=== PATIENT | female | born 1990 | race Caucasian/White ===

== ENCOUNTER 2024-06-06 10:45 | Outpatient (CLI) | payer BC, SELFPAY ==
[2024-06-06] VITALS (8 sets, daily range): BP systolic 117; BP diastolic 82; PULSE 78–82; RESP 16; TEMP 37; O2SAT 93–97; BMI 31.2
[2024-06-06] MEDS: Lactated Ringers 500 ML 125 ML IV (11:40)
--- NOTE | 2024-06-06 12:27 | PCM.HP.OB ---
HPI - General General Date of Admission: 06/06/24 Date of Service: 06/06/24 Chief Complaint: breech presentation HPI Narrative JOSÉ RODRIGUEZ, is a 33 F who presents for a scheduled ECV. The procedure was discussed in the office with the patient who requested to proceed. No ctx, vb, lof. Good FM. PFSH PFSH Home Medications ?Medication ?Instructions ?Recorded ?Last Taken ?Type acyclovir 400 mg tablet 400 mg PO TID 06/06/24 Unknown History magnesium tab PO 06/06/24 Unknown History multivitamin (Daily Multi-Vitamin 1 tab PO DAILY 06/06/24 Unknown History tablet) Allergy/AdvReac Type Severity Reaction Status Date / Time milk Allergy Mild Other Verified 06/06/24 11:38 NST FHR Rate Baby A FHR Category:: Category I Uterine Activity:: no regular ctx's Vital Signs Vital Signs Vital Signs: 06/06/24 11:30 06/06/24 11:30 06/06/24 11:31 Temperature Temperature Source Pulse Rate 78 82 Respiratory Rate Blood Pressure 117/82 H BP Systolic 117 BP Diastolic 82 Pulse Ox 06/06/24 11:31 06/06/24 11:39 06/06/24 11:39 Temperature Temperature Source Temporal Pulse Rate Respiratory Rate 16 Blood Pressure BP Systolic BP Diastolic Pulse Ox 94 06/06/24 11:39 06/06/24 12:24 06/06/24 12:24 Temperature 98.6 F Temperature Source Pulse Rate 78 Respiratory Rate Blood Pressure BP Systolic BP Diastolic Pulse Ox 93 06/06/24 12:25 06/06/24 12:25 Temperature Temperature Source Pulse Rate 78 Respiratory Rate Blood Pressure BP Systolic BP Diastolic Pulse Ox 94 Weight Weight: 217 lb 13.067 oz Body Mass Index (BMI) 31.2 Labs Labs Labs: No Data to Display Assessment & Plan (1) 37 weeks gestation of : (2) Breech presentation: PLAN: TAUS performed at bedside noting subjectively normal fluid and breech presentation. Discussed r/b/a ECV with patient and partner at bedside, and questions answered. Consent signed. She requested to proceed with external cephalic version.
--- NOTE | 2024-06-06 12:30 | EX.PCM.OBRPT ---
Assessment & Plan (1) Breech presentation: (2) 37 weeks gestation of : Operative Report (OB) Cecarean Details Procedure Type: Other (external cephalic version) Date of Procedure: 06/06/24 Procedure Start Time: 12:15 (estimation) Procedure Stop Time: 12:20 (estimation) Pre-Operative Diagnosis: Breech Post-Operative Diagnosis: Same as Pre-operative diagnosis Type of Anesthesia: None Special Medications: None Drain: Other (None) Estimated Blood Loss: NOne Findings Description of surgery: The patient presented to labor and delivery for a scheduled external cephalic version per patient request. Discussed risk, benefits, alternatives to the procedure and consent signed and on chart. The patient desires to proceed. A bedside ultrasound was performed which confirmed a single intrauterine in breech presentation with adequate fluid. NST was reactive. The pelvis was located in the maternal right lower quadrant, spine along the maternal right side, and head in the maternal left upper quadrant. Sangita Cardenas certified nurse gas controller was at bedside for assistance of the procedure. Using manual traction pressure, the fetus was manipulated with gentle pressure from the palms against the buttocks and posterior occiput to stimulate a forward roll. In total 2 attempts were made. The heart rate was obtained between the attempts, and was reassuring. On the final attempt the fetus remained in breech presentation. The nurse was instructed on heart rate monitoring for 1 hour postprocedure. Discharge instructions were reviewed with patient and reasons to call and return to labor and delivery. Will schedule 39-week section and to follow-up in the office. Surgical findings: Breech presentation Specimen collected: No Commercial Specialist computer game programmer: Yes Truck And Transport Mechanic: sangita cardenas CNM Tasks completed by assistant store manager sales: Other (elevation of buttock, and attempt at rotation of fetus) Complications Complications: No
== END 2024-06-06 14:05 | disposition home or self-care (01) ==
LOC: WPOUT 11:12 → WP 11:12
PROVIDERS: Anesthesiology; Referring Provider Obstetrics & Gynecology; Visit Provider Obstetrics & Gynecology
DX: O32.1XX0 Maternal care for breech presentation, not applicable or unspecified (principal); Z3A.37 37 weeks gestation of pregnancy
CPT/HCPCS: 96360; 96361; 59025; 59050; 59412; 99221; G0378

== ENCOUNTER 2024-06-21 09:24 | Inpatient (IN) | payer BC, SELFPAY ==
[2024-06-21] VITALS (19 sets, daily range): BP systolic 96–120; BP diastolic 56–88; PULSE 53–78; RESP 11–19; TEMP 36–36.8; O2SAT 94–98; BMI 31.8
[2024-06-21] MEDS: Lactated Ringers 1,000 ML 999 ML IV (10:25)
[2024-06-21 10:38] LABS: Absolute Lymphocyte Count 2.09 X10^3/uL (0.83-4.51); Absolute Neutrophil Count 7.4 X10^3/uL (2.0-7.7); Basophil# 0.04 X10^3/uL; Basophil% 0.4 % (0-1); Eosinophil# 0.06 X10^3/uL; Eosinophils% 0.6 % (0-5); Hematocrit 34.4 % (37-47); Hemoglobin 11.7 g/dL (12.0-15.0); Lymphocyte # 2.09 X10^3/ul (0.83-4.51); Lymphocyte % 19.9 % (19-41); Mean Corpuscular Hgb 29.4 pg (27.0-32.0); Mean Corpuscular Volume 86.4 fL (81-99); Mean Platelet Vol. 8.9 fl (6.2-12.0); Monocyte# 0.75 X10^3/uL; Monocyte% 7.1 % (0-10); NRBC Flagged by Analyzer 0 % (0-5); Neutrophil # 7.43 X10^3/uL (2.7-7.7); Neutrophil % 70.8 % (47-70); Platelet Count 213 K/mm3 (150-450); RBC Distribution Width CV 13.4 % (11.6-14.6); RBC Distribution Width SD 41.8 fl (35.1-43.9); Red Blood Count 3.98 M/mm3 (4.2-5.4); White Blood Count 10.5 K/mm3 (4.4-11.0)
[2024-06-21 11:15] LABS: Syphilis Antibodies Non-reactive
[2024-06-21] MEDS: Acetaminophen 500 MG Tablet 1000 MG PO ×2 (11:26→17:35)
[2024-06-21] MEDS: Sodium Citrate/Citric Acid 30 ML UDC PO (12:25)
[2024-06-21] MEDS: Cefazolin 2 GM in Syringe IV (12:55)
--- NOTE | 2024-06-21 13:40 | PCM.HP.OB ---
HPI - General General Date of Admission: 06/21/24 Date of Service: 06/21/24 Chief Complaint: Scheduled HPI Narrative JOSÉ RODRIGUEZ, is a 33 F who presents scheduled for breech Maternal Data Information Final TERRY: 06/28/24 Gestational age: 39 PFSH PFSH Medical History Breast disorder Home Medications ?Medication ?Instructions ?Recorded ?Last Taken ?Type acyclovir 400 mg tablet 400 mg PO TID HSV 06/06/24 06/19/24 21:00 History magnesium tab PO sleep 06/06/24 06/20/24 19:00 History multivitamin (Daily Multi-Vitamin 1 tab PO DAILY 06/06/24 06/20/24 19:00 History tablet) Allergy/AdvReac Type Severity Reaction Status Date / Time milk Allergy Mild rosecea Verified 06/21/24 11:32 Surgical History History of surgery Social History Smoking Status: Former smoker History 1 Elective abortions Hx Para 0 Spontaneous abortions Hx # Term Pregnancies Ectopic pregnancies Hx # Pregnancies Multiple births # of living children ROS Constitutional Constitutional: Denies fatigue, fever(s) or malaise Eyes Eyes: Denies change in vision ENT HEENT: Denies dizziness or headache(s) Cardiovascular Cardiovascular: Denies chest pain, dyspnea or lightheadedness Respiratory/Chest Respiratory/Chest: Denies cough or dyspnea Gastrointestinal Gastrointestinal: Denies change in bowel habits Genitourinary Genitourinary: Denies burning urination or genital lesions Integumentary Integumentary: Denies rash Neurologic Neurologic: Denies confusion, dizziness, headache(s), numbness or weakness Vital Signs Vital Signs Vital Signs: 06/21/24 10:57 Temperature 97.3 F L Temperature Source Temporal Pulse Rate 78 Respiratory Rate 16 Blood Pressure 120/88 H Blood Pressure Mean 98 Blood Pressure Source Monitor Blood Pressure Position Semi-Fowlers Blood Pressure Location Right Arm Pulse Ox 98 Oxygen Delivery Method Room Air Weight Weight: 100.698 kg Body Mass Index (BMI) 31.8 Physical Exam Const alert and no apparent distress General Appearance: cooperative HEENT normocephalic Resp normal respiratory effort Cardio regular rate GI soft to palpation GI Narrative: gravid, nontender, appropriate for gestational age Extremity no calf tenderness General Extremity: edema Skin no wounds Rashes: No rashes noted Psych activity/motor behavior normal Labs Labs Labs: Blood Type AB POSITIVE Antibody Screen NEGATIVE Hct 34.4 % (37-47) L Hgb 11.7 g/dL (12.0-15.0) L Syphilis Total Ab Non-reactive Assessment & Plan (1) Breech presentation: QUALIFIERS: Fetus number: single or unspecified fetus Qualified Code(s): O32.1XX0 - Maternal care for breech presentation, not applicable or unspecified (2) 39 weeks gestation of : PLAN: Plan Primary c/s
--- NOTE | 2024-06-21 13:41 | OP.PCM_ITS ---
Assessment & Plan (1) Breech presentation: QUALIFIERS: Fetus number: single or unspecified fetus Qualified Code(s): O32.1XX0 - Maternal care for breech presentation, not applicable or unspecified (2) 39 weeks gestation of : Maternal Data Information Final TERRY: 06/28/24 Gestational age: 39 Operative Report (OB) Cecarean Details Procedure Type: low transverse Date of Procedure: 06/21/24 Procedure Start Time: 13:07 Procedure Stop Time: 13: Time of Delivery: 13:11 Pre-Operative Diagnosis: Breech Post-Operative Diagnosis: Same as Pre-operative diagnosis Classification: Scheduled Type of Anesthesia: Spinal Antibiotic Given: Ancef 2 grams IV x1 Drain: Sanchez to straight drain Estimated Blood Loss: 500 cc Findings Description of surgery: Patient taken to the OR where spinal anesthesia was placed. A Sanchez was placed in her bladder. She was prepped and draped in the normal sterile fashion. A Pfannenstiel incision was made and carried down to the underlying fascia. The fascia was incised in the midline and extended laterally. The fascia was dissected from the muscle. The muscles divided in the midline. The peritoneum was entered bluntly and extended manually. A bladder blade was placed. A bladder flap was created. A low transverse incision was made and extended bluntly. The hips were elevated to the incision. The body and head delivered easily. The cried upon delivery. The cord was cut and clamped. The placenta was delivered with chidi traction. The uterus was exteriorized and cleared of all clot and debris. The incision was repaired with 1-0 Vicryl x 2. The uterus was returned the abdomen, The gutter cleared of all clots. The peritoneum was closed with 2-0 Monocryl. The fascia was closed with 1-0 Vicryl. The subcutaneous tissue was reapproximated with 2-0 Monocryl The skin was closed with 4-0. I performed the major parts of the procedure with the RFNA assisting with retraction and closing the skin. The sponge lap and needle count was correct x 2 Surgical findings: Normal uterus tubes and ovaries Presentation: Complete Breech Amniotic Membrane Rupture Type: Artificial Amniotic Fluid Description: Clear Placental Delivery Description: Expressed and Manual Removal Placenta Disposition: [facility] Specimen collected: No Cord Vessel Description: 3 Vessels Cord Entanglement: None Infant A gender: Male (1 minute): 8 (5 minute): 8 Delayed Cord Clamping: Yes Machine Learning Intern manager technical training: Yes Group Sales Manager: Yaneth Holbrook Tasks completed by after school program assistant: Opening & closing and Retracting Additional trading assistant?: No Complications Complications: No
[2024-06-21] MEDS: Oxytocin 15 Units/NS 250ml 15 UNITS/250 ML IV.SOLN 83 UNITS IV (14:10)
[2024-06-21] MEDS: Ketorolac 30 MG/ML Syringe IV ×2 (14:33→20:44)
[2024-06-21] MEDS: 0.9% Saline Lock 10 ML Syringe IV (20:44)
[2024-06-22 00:50] VITALS: BP 97/65; PULSE 62; RESP 16; TEMP 37.4; O2SAT 95
[2024-06-22] MEDS: Acetaminophen 500 MG Tablet 1000 MG PO ×4 (01:09→22:19)
[2024-06-22 02:30] VITALS: PULSE 62; RESP 16; O2SAT 97
[2024-06-22] MEDS: 0.9% Saline Lock 10 ML Syringe IV ×2 (02:43→08:14)
[2024-06-22] MEDS: Ketorolac 30 MG/ML Syringe IV ×2 (02:43→08:14)
[2024-06-22 04:45] VITALS: BP 97/65; PULSE 73; RESP 18; TEMP 36.7; O2SAT 96
[2024-06-22 05:25] LABS: Hematocrit 32.4 % (37-47); Mean Corpuscular Volume 88.3 fL (81-99); Mean Platelet Vol. 9.1 fl (6.2-12.0); Platelet Count 170 K/mm3 (150-450); RBC Distribution Width CV 13.5 % (11.6-14.6); RBC Distribution Width SD 43.4 fl (35.1-43.9); Red Blood Count 3.67 M/mm3 (4.2-5.4); White Blood Count 11.6 K/mm3 (4.4-11.0)
--- NOTE | 2024-06-22 07:21 | PN.OBGYN_ITS ---
Subjective Subjective Doing well. Ambulating well. Sanchez intact. Pain controlled. Mild lochia. Breast feeding. Objective Data Objective Data Vital Signs: Vital Signs Temp Pulse Resp BP Pulse Ox O2 Del Method 98.1 F 73 18 97/65 96 Room Air 06/22/24 04:45 06/22/24 04:45 06/22/24 04:45 06/22/24 04:45 06/22/24 04:45 06/22/24 04:45 Oxygen Delivery Method Room Air Weight: 100.698 kg Body Mass Index (BMI) 31.8 Intake & Output: Intake and Output for Last 24 Hours 06/20/24 06/21/24 06/22/24 23:59 23:59 23:59 Intake Total 1370 / 1370 Output Total 1800 / 1800 700 / 700 Balance -430 / -430 -700 / -700 Lab / Micro Data 06/22/24 05:05 Labs: Laboratory Results - last 24 hr 06/21/24 10:25: WBC 10.5, RBC 3.98 L, Hgb 11.7 L, Hct 34.4 L, MCV 86.4, MCH 29.4, MCHC 34.0, RDW Std Deviation 41.8, RDW Coeff of [place] 13.4, Plt Count 213, MPV 8.9, Immature Gran % (Auto) 1.200 H, Neut % (Auto) 70.8 H, Lymph % (Auto) 19.9, [place] % (Auto) 7.1, Eos % (Auto) 0.6, Baso % (Auto) 0.4, Absolute Neuts (auto) 7.4, Absolute Lymphs (auto) 2.09, Nucleated RBC % 0, Syphilis Total Ab Non-reactive, Blood Type AB POSITIVE, Antibody Screen NEGATIVE 06/22/24 05:05: WBC 11.6 H, RBC 3.67 L, Hgb 11.0 L, Hct 32.4 L, MCV 88.3, MCH 30.0, MCHC 34.0, RDW Std Deviation 43.4, RDW Coeff of [place] 13.5, Plt Count 170, MPV 9.1 ROS Constitutional Constitutional: Denies fatigue, fever(s) or malaise Eyes Eyes: Denies change in vision ENT HEENT: Denies dizziness or headache(s) Cardiovascular Cardiovascular: Denies chest pain, dyspnea or lightheadedness Respiratory/Chest Respiratory/Chest: Denies cough or dyspnea Gastrointestinal Gastrointestinal: Denies change in bowel habits Genitourinary Genitourinary: Denies burning urination or genital lesions Integumentary Integumentary: Denies rash Neurologic Neurologic: Denies confusion, dizziness, headache(s), numbness or weakness Physical Exam Const alert General Appearance: cooperative GI GI Narrative: soft, moderate distention, fundus firm, appropriately tender. Abdominal bandage clean dry and intact Extremity General Extremity: edema bilateral Assessment & Plan (1) 39 weeks gestation of : (2) Breech presentation: QUALIFIERS: Fetus number: single or unspecified fetus Qualified Code(s): O32.1XX0 - Maternal care for breech presentation, not applicable or unspecified PLAN: Plan Routine care
[2024-06-22 09:00] VITALS: BP 105/66; PULSE 70; RESP 16; TEMP 36.9; O2SAT 98
[2024-06-22 13:29] VITALS: BP 125/81; PULSE 60; RESP 16; TEMP 36.6; O2SAT 98
[2024-06-22] MEDS: Ibuprofen 600 MG Tablet PO ×2 (14:15→20:25)
[2024-06-22] MEDS: Senna/Docusate Sodium 1 Tablet PO (14:15)
[2024-06-22 20:21] VITALS: BP 113/81; PULSE 70; RESP 15; TEMP 36.4; O2SAT 98
[2024-06-23] MEDS: Ibuprofen 600 MG Tablet PO ×2 (02:34→08:35)
[2024-06-23 02:35] VITALS: BP 113/72; PULSE 60; RESP 16; TEMP 36.3; O2SAT 96
[2024-06-23] MEDS: Acetaminophen 500 MG Tablet 1000 MG PO ×2 (04:50→09:38)
[2024-06-23 08:25] VITALS: BP 115/66; PULSE 66; RESP 18; TEMP 36.7; O2SAT 97
--- NOTE | 2024-06-23 09:02 | PCM.PN.OB ---
Objective Data Objective Data Vital Signs: Vital Signs Temp Pulse Resp BP Pulse Ox O2 Del Method 97.3 F L 60 16 113/72 96 Room Air 06/23/24 02:35 06/23/24 02:35 06/23/24 02:35 06/23/24 02:35 06/23/24 02:35 06/23/24 02:35 Oxygen Delivery Method Room Air Weight: 222 lb Body Mass Index (BMI) 31.8 Intake & Output: Intake and Output for Last 24 Hours 06/21/24 06/22/24 06/23/24 23:59 23:59 23:59 Intake Total 1370 / 1370 Output Total 1800 / 1800 1700 / 1700 Balance -430 / -430 -1700 / -1700 Lab / Micro Data 06/22/24 05:05 Physical Exam Const alert, oriented x3 and no apparent distress HEENT normocephalic GI soft to palpation, non-tender and non-distended GI Narrative: fundus firm, mid & below umbilicus Incision - bandage c/d/i Extremity normal to inspection and no calf tenderness Assessment & Plan (1) Breech presentation: QUALIFIERS: Fetus number: single or unspecified fetus Qualified Code(s): O32.1XX0 - Maternal care for breech presentation, not applicable or unspecified COMMENT: POD#2 PLAN: Plan D/c home
--- NOTE | 2024-06-23 09:03 | PCM.DC.SUM ---
Providers Date of Admission: 06/21/24 Primary Care Physician: No Primary Care Phys Reason For Visit: PRIMARY Diagnosis Discharge Diagnosis (1) Breech presentation: Status: Acute Code(s): O32.1XX0 - Maternal care for breech presentation, not applicable or unspecified Qualifiers: Fetus number: single or unspecified fetus Qualified Code(s): O32.1XX0 - Maternal care for breech presentation, not applicable or unspecified Plan D/c home Medications at Discharge Home Medications magnesium tab PO sleep 06/06/24 multivitamin (Daily Multi-Vitamin tablet) 1 tab PO DAILY 06/06/24 acetaminophen 500 mg tablet 1,000 mg (2 x 500 mg) PO Q6H #0 tabs 06/23/24 ibuprofen 600 mg tablet 600 mg PO Q6H #0 tabs 06/23/24 Hospital Course Operations section Summary of Care Provided Minutes Spent on Discharge: 15 Weight / BMI Weight Weight: 222 lb Body Mass Index (BMI) 31.8 ABG / Lab / Microbiology Data 06/22/24 05:05 D/C Instructions Discharge Diet: No restrictions Discharge Activity: May Shower May resume sexual activity in: 6 weeks Weight Bearing Status: Weight bearing as tolerated Call your doctor if your incision/area has: Continuous Slow Oozing, Sudden Increased Bleeding, Increased Pain/ Swelling, Increased Redness, Foul Smelling Discharge and Swelling at the incision site Call your doctor if you observe: Fever of 101 or Higher, Coldness, Increased Pain, Change in Color, Inability to urinate, Inability to have a bowel movement, Using more than 1 pad per hour, Shortness of breath, Dizziness, Fainting spells, Chest pain, Increased palpitations (irregular heartbeat), Calf discomfort and Uncontrolled pain Suture Line Care: Avoid Pulling/Pushing and Avoid Pinching/Bending Remove Dressing in: 1 week Cleanse incision/area with: Soap & Water DC O2, CPAP, BIPAP Needs Home O2 Discharge instructions: No Please Follow Up With: Belen Reddy MD When: Follow up in 2 and 6 weeks for visits. Meaningful Use Info Meaningful Use Meaningful Use Diagnoses (Choose all that apply): None applicable Ischemic Stroke Statin Dosing Therapy Reference: STATIN DOSE THERAPY REFERENCE: * Patients > 75 years receive moderate or high dose statin therapy. * Patients 75 years or YOUNGER should receive HIGH intensity statin dose unless contraindicated. You will be required to document reason for non-treatment if statin daily dose does not meet guidelines. HIGH DOSE STATIN THERAPY DAILY Atorvastatin > than or = to 40 mg Rosuvastatin > than or = to 20 mg Amlodipine + Atorvastatin > than or = to 2.5/40 mg Ezetimibe + Simvastatin 10/80 mg Simvastatin 80mg Discharge Plan Admission Admit Date/Time: 06/21/24 09:24 Primary Reason for Your Visit: section Attending Provider: Belen Reddy Primary Care Provider: Care Physician,Rosio Primary Discharge Orders/Prescriptions Prescriptions: New acetaminophen 500 mg Tablet 1,000 mg PO Q6H Qty: 0 0RF ibuprofen 600 mg Tablet 600 mg PO Q6H Qty: 0 0RF Continued multivitamin [Daily Multi-Vitamin] Tablet 1 tab PO DAILY magnesium Tablet PO Discontinued acyclovir 400 mg tablet 400 mg PO TID Referrals / Follow Up: Care Physician,No Primary [Primary Care Provider] - Disposition Disposition (needs filled in before D/C Order can be placed): Home, Self Care
[2024-06-23] MEDS: Senna/Docusate Sodium 1 Tablet PO (09:37)
[2024-06-23 12:25] VITALS: BP 132/85; PULSE 79; RESP 18; TEMP 37.3; O2SAT 99
== END 2024-06-23 12:30 | disposition home or self-care (01) | DRG 788 ==
PROVIDERS: Admitting Provider Obstetrics & Gynecology; Referring Provider Obstetrics & Gynecology; Visit Provider Obstetrics & Gynecology
PROC: 10D00Z1 Extraction of Products of Conception, Low, Open Approach (ICD-10-PCS; CPT 59514; principal; 2024-06-21 11:45)
DX: O32.1XX0 Maternal care for breech presentation, not applicable or unspecified (principal); Z37.0 Single live birth; Z3A.39 39 weeks gestation of pregnancy; Z87.891 Personal history of nicotine dependence
CPT/HCPCS: 59025; 59050; 85025; 85027; 86780; 86850; 86900; 86901; 99221; A4216; G0378; J2405